=== PATIENT | female | born 1970 | race African-American/Black ===

== ENCOUNTER 2018-11-13 02:36 | Emergency (ER) | payer MEDICAID ==
[~2018-11-13] VITALS: Ht 165.1 cm; Wt 190.5 kg
[~2018-11-13 02:36] MED LIST: METFSOL2; VER40T
[2018-11-13 03:56] LABS: Basophils # (auto) 0 uL; Basophils % (auto) 0.7 % (0.0-2.0); Eosinophils # (auto) 0.1 uL; Eosinophils % (auto) 1.3 % (0.0-7.0); Hematocrit 34.9 % (36.0-46.0); Hemoglobin 11.1 g/dL (12.2-16.2); Lymphocytes # (auto) 2.5 uL; Lymphocytes % (auto) 40.8 % (10.0-50.0); Mean Corpuscular Hemoglobin 25.9 pg (28.0-32.0); Mean Corpuscular Hgb Conc. 31.7 g/dL (32.0-36.0); Mean Corpuscular Volume 81.8 fL (80.0-100.0); Monocytes # (auto) 0.5 uL; Monocytes % (auto) 8.7 % (0.0-12.0); Neutrophils % (auto) 48.5 % (37.0-80.0); Nucleated Red Blood Cells % 0.1 %; Platelet Count (auto) 263 10^3/uL (140-450); Red Blood Cells 4.27 10^6/uL (4.0-5.20); Red Cell Distribution Width 16.9 % (11.8-14.3); White Blood Cell 6.1 10^3/uL (4.4-10.8)
[2018-11-13 04:03] VITALS: BP 158/74
[2018-11-13 04:11] LABS: Potassium 3.7 mmol/L (3.5-5.1)
[2018-11-13] MEDS ORDERED: KETOROLAC TROMETH 60MG/2ML VIAL IM ONE (04:15)
[2018-11-13 04:16] LABS: Albumin 3.3 g/dL (3.4-5.0); Calcium 9.4 mg/dL (8.5-10.1)
[2018-11-13 04:21] LABS: BUN/Creatinine Ratio 17.2; Bilirubin, Total 0.3 mg/dL (0.2-1.0)
== END 2018-11-13 04:39 | disposition home or self-care (01) ==
LOC: ER 02:40 → MERGE 02:40 → ER 04:39
DX: B36.9 Superficial mycosis, unspecified (principal); H62.41 Otitis externa in other diseases classified elsewhere, right ear
CPT/HCPCS: 36415; 80053; 85025; 96372; 99283; J1885

== ENCOUNTER → 2023-05-11 | Outpatient (CLI) | payer OTHER, MEDICAID ==
[~2023-05-11] MED LIST changes: +ALBUTEROL SULF 2.5 MG/0.5ML(0.5%) NEB SOLN ONE
== END | disposition home or self-care (01) ==
LOC: RT 08:55
PROVIDERS: ATTEND Internal Medicine Pulmonary Disease
DX: Z01.818 Encounter for other preprocedural examination (principal); R06.09 Other forms of dyspnea
CPT/HCPCS: 94060; 94727; 94729

== ENCOUNTER → 2024-02-15 | Outpatient (CLI) | payer OTHER ==
[~2024-02-15] MED LIST changes: -ALBUTEROL SULF 2.5 MG/0.5ML(0.5%) NEB SOLN ONE
== END | disposition home or self-care (01) ==
LOC: Rad HDHVI 09:13
PROVIDERS: ATTEND Internal Medicine Cardiovascular Disease
DX: Z01.818 Encounter for other preprocedural examination (principal); I10 Essential (primary) hypertension
CPT/HCPCS: 93880

== ENCOUNTER 2024-07-03 07:24 | Inpatient (IN) | payer OTHER, MEDICAID ==
[~2024-07-03] VITALS: Ht 167.6 cm; Wt 163.5 kg
--- NOTE | 2024-07-03 07:38 | ED.PDOC ---
History of Present Illness HPI Comments 54 Y F, with PMHX of anemia and HTN, presents to the ED with CC HTN. Patient states that she has been experiencing high blood pressure with associated symptoms of dizziness and lightheadedness. Patient states that she checked her BP at home and the reading was 190/104; patient's BP in triage read at 189/98. Patient is currently taking atenolol and enalapril for her HTN. Patient relays that she is also having left sided chest pain that she believes is related to her gastric sleeve surgery which she received on 06/27/24. Patient denies any tobacco, ETOH, or illicit drugs. Patient denies SOB, cough, fever, chills, headache, or nasal congestion. Time Seen by MD: 07:30 Primary Care Provider: CORBY Reviewed Notes: Nurses Notes, Medications, Allergies Allergies: Coded Allergies: NO KNOWN ALLERGIES (Unverified , 05/19/11) Home Meds Reported Medications Verapamil Hcl (Verapamil Hcl) 40 Mg Tab 05/19/11 Metformin Hcl (Riomet) Keila 05/19/11 Information Source: Patient Mode of Arrival: Ambulatory Severity: Moderate Timing: Hours Duration: Since onset Prehospital treatment: None Past Medical History PAST MEDICAL HISTORY: Anemia, DM, HTN Surgical History: Family History Family History: Unknown Social History Smoker: Non-Smoker Alcohol: Denies ETOH Use Drugs: Denies Drug Use Lives In: Home Constitutional: denies: chills, diaphoresis, fatigue, fever, malaise, sweats, weakness, others EENTM: denies: blurred vision, double vision, ear bleeding, ear discharge, ear drainage, ear pain, ear ringing, eye pain, eye redness, hearing loss, mouth pain, mouth swelling, nasal discharge, nose bleeding, nose congestion, nose pain, photophobia, tearing, throat pain, throat swelling, voice changes, others Respiratory: denies: cough, hemoptysis, orthopnea, SOB at rest, shortness of breath, SOB with excertion, stridor, wheezing, others Cardiovascular: reports: chest pain (LEFT SIDED); denies: dizzy spells, diaphoresis, Dyspnea on exertion, edema, irregular heart beat, left arm pain, lightheadedness, palpitations, PND, syncope, others Gastrointestinal: denies: abdomen distended, abdominal pain, blood streaked bowels, constipated, diarrhea, dysphagia, difficulty swallowing, hematemesis, melena, nausea, poor appetite, poor fluid intake, rectal bleeding, rectal pain, vomiting, others Genitourinary: denies: abnormal vagina bleeding, burning, dyspareunia, dysuria, flank pain, frequency, hematuria, incontinence, pain, , vagina discharge, urgency, others Neurological: reports: dizziness, others (LIGHTHEADED); denies: fainting, headache, left sided numbness, left sided weakness, numbness, paresthesia, pre- existing deficit, right sided numbness, right sided weakness, seizure, speech problems, tingling, tremors, weakness Musculoskeletal: denies: back pain, gout, joint pain, joint swelling, muscle pain, muscle stiffness, neck pain, others Integumetry: denies: bruises, change in color, change in hair/nails, dryness, laceration, lesions, lumps, rash, wounds, others Allergic/Immunocompromised: denies: Difficulty Healing, Frequent Infections, Hives, Itching, others Hematologic/Lymphatic: denies: anemia, blood clots, easy bleeding, easy bruising, swollen glands, others Endocrine: denies: excessive hunger, excessive sweating, excessive thirst, excessive urination, flushing, intolerance to cold, intolerance to heat, unexplained weight gain, unexplained weight loss, others Psychiatric: denies: anxiety, bipolar disorder, depression, hopeless, panic disorder, schizophrenia, sleepless, suicidal, others All Other Systems: Reviewed and Negative Physical Exam General Appearance: Moderate Distress, Obese HEENT: Normal ENT Inspection, Pharynx Normal, TMs Normal Neck: Full Range of Motion, Non-Tender, Normal, Normal Inspection Respiratory: Chest Non-Tender, Lungs Clear, No Accessory Muscle Use, No Respiratory Distress, Normal Breath Sounds Cardiovascular: No Edema, No JVD, No Murmur, No Gallop, Normal Peripheral Pulses, Regular Rate/Rhythm Breast Exam: Deferred Gastrointestinal: No Organomegaly, Non Tender, No Pulsatile Mass, Normal Bowel Sounds, Soft Genitalia: Deferred Pelvic: Deferred Rectal: Deferred Extremities: No calf tenderness, Normal capillary refill, Normal inspection, N ormal range of motion, Non-tender, No pedal edema Musculoskeletal : Apperance: Normal Neurologic: Alert, operating systems programmer II-XII nml as Tested, No Motor Deficits, Normal Affect, Normal Mood, No Sensory Deficits Cerebellar Function: Normal Reflexes: Normal Skin: Dry, Normal Color, Warm Peripheral Pulses: 3+ Radial (R), 3+ Radial (L) Lymphatic: No Adenopathy Was a procedure done? Was a procedure done?: No Differential Dx Considerations may include: Stress, HTN CRISIS, X-Ray, Labs, Meds, VS Vital Signs Date Time Temp Pulse Resp B/P (MAP) Pulse Ox O2 Delivery O2 Flow Rate FiO2 07/03/24 07:42 189/98 07/03/24 07:40 98.4 89 18 189/98 (128) 97 07/03/24 07:40 83 Lab Test 07/03/24 08:34 07/03/24 07:46 Range/Units Urine Color Light-yellow Yellow Urine Clarity Clear Clear Urine pH 6.5 5.0-9.0 Urine Specific [place] 1.015 1.001-1.035 Urine Protein Negative Negative Urine Ketones 3+ H Negative Urine Blood 2+ H Negative /uL Urine Nitrite Negative Negative Urine Bilirubin Negative Negative Urine Urobilinogen Normal Negative mg/dL Urine Leukocyte Esterase Negative Negative /uL Urine RBC 37 0 - 4 /hpf Urine WBC <1 0 - 5 /hpf Urine Squamous Epithelial Cells Few <5 /hpf Urine Bacteria None seen None Seen /hpf Urine Mucus Few None Seen Urine Glucose Normal Normal mg/dL White Blood Count 5.5 4.4-10.8 10^3/uL Red Blood Count 5.04 4.0-5.20 10^6/uL Hemoglobin 13.1 12.2-16.2 g/dL Hematocrit 41.3 36.0-46.0 % Mean Corpuscular Volume 82.1 80.0-100.0 fL Mean Corpuscular Hemoglobin 26.1 L 28.0-32.0 pg Mean Corpuscular Hemoglobin Concent 31.8 L 32.0-36.0 g/dL Red Cell Distribution Width 21.3 H 11.8-14.3 % Platelet Count 207 140-450 10^3/uL Mean Platelet Volume 9.7 6.9-10.8 fL Neutrophils (%) (Auto) 68.5 37.0-80.0 % Lymphocytes (%) (Auto) 22.2 10.0-50.0 % Monocytes (%) (Auto) 7.5 0.0-12.0 % Eosinophils (%) (Auto) 0.9 0.0-7.0 % Basophils (%) (Auto) 0.9 0.0-2.0 % Neutrophils # (Auto) 3.7 1.6-8.6 10 ^3/uL Lymphocytes # (Auto) 1.2 0.4-5.4 10 ^3/uL Monocytes # (Auto) 0.4 0-1.3 10 ^3/uL Eosinophils # (Auto) 0.1 0-0.8 10 ^3/uL Basophils # (Auto) 0 0-0.2 10 ^3/uL Nucleated Red Blood Cells 0.0 % Sodium Level 137 136-145 mmol/L Potassium Level 3.9 3.5-5.1 mmol/L Chloride Level 102 98-107 mmol/L Carbon Dioxide Level 27 20-31 mmol/L Anion Gap 8 5-15 Blood Urea Nitrogen 10 9-23 mg/dL Creatinine 0.79 0.550-1.02 mg/dL Glomerular Filtration Rate Calc 88 >90 mL/min BUN/Creatinine Ratio 12.7 10.0-20.0 Serum Glucose 73 L 74-106 mg/dL Calcium Level 11.6 H 8.7-10.4 mg/dL Troponin I High Sensitivity 3 L </=34 ng/L Current Medications Medications (Trade) Dose Ordered Sig/Loree Route Start Time Stop Time Status Last Admin Clonidine HCl (Catapres Tablet) 0.2 mg ONCE ONCE PO 07/03/24 07:45 07/03/24 07:46 DC 07/03/24 07:42 Patient alert. Complaining of having high blood pressure. Chest discomfort. Blood pressure elevated. Was given clonidine. Was given aspirin. WBC within normal limits. EKG reviewed does not show any acute changes. Cardiac marker within normal limits. Reviewed her history. Explained to the patient. Continue cardiac monitoring. Time of 1ST Reevaluation: 08:00 Reevaluation 1ST: Unchanged Patient Education/Counseling: Diagnosis, Treatment Family Education/Counseling: No Family Present Departure 1 Departure Time of Disposition: :27 Impression: Primary Impression: Chest pain of unknown etiology Additional Impression: Hypertensive emergency Disposition: ADMITTED INPATIENT Admit to: Med Surg Condition: Guarded Critical Care Note Critical Care Time?: Yes (45 min-critical care time only) Stability Stability form required: No Heart Score Heart Score: Heart Score Response (Comments) Value History Slightly Suspicious 0 EKG Normal 0 Age 45-64 1 Risk Factors 1 or 2 risk factors 1 Troponin Normal limit 0 Total 2 I personally scribed for JEAN PERKINS MD ([email or web address]) on 07/03/24 at 07:38. Electronically submitted by Chauncey Marley ([email or web address]). I personally scribed for JEAN PERKINS MD ([email or web address]) on 07/03/24 at 07:43. Electronically submitted by Chauncey Marley ([email or web address]). I personally scribed for JEAN PERKINS MD ([email or web address]) on 07/03/24 at 07:54. Electronically submitted by Chauncey Marley ([email or web address]). JEAN PERKINS MD Jul 03, 2024 07:38
[2024-07-03] MEDS: cloNIDine HCL 0.1 MG TAB PO ONE (07:42)
[2024-07-03 08:05] LABS: Basophils # (auto) 0 10 ^3/uL (0-0.2); Basophils % (auto) 0.9 % (0.0-2.0); Eosinophils # (auto) 0.1 10 ^3/uL (0-0.8); Eosinophils % (auto) 0.9 % (0.0-7.0); Hematocrit 41.3 % (36.0-46.0); Hemoglobin 13.1 g/dL (12.2-16.2); Lymphocytes # (auto) 1.2 10 ^3/uL (0.4-5.4); Lymphocytes % (auto) 22.2 % (10.0-50.0); Mean Corpuscular Hemoglobin 26.1 pg (28.0-32.0); Mean Corpuscular Hgb Conc. 31.8 g/dL (32.0-36.0); Mean Corpuscular Volume 82.1 fL (80.0-100.0); Monocytes # (auto) 0.4 10 ^3/uL (0-1.3); Monocytes % (auto) 7.5 % (0.0-12.0); Neutrophils # (auto) 3.7 10 ^3/uL (1.6-8.6); Neutrophils % (auto) 68.5 % (37.0-80.0); Platelet Count (auto) 207 10^3/uL (140-450); Red Blood Cells 5.04 10^6/uL (4.0-5.20); Red Cell Distribution Width 21.3 % (11.8-14.3); White Blood Cell 5.5 10^3/uL (4.4-10.8)
[2024-07-03 08:08] LABS: Chloride 102 mmol/L (98-107); Potassium 3.9 mmol/L (3.5-5.1); Sodium 137 mmol/L (136-145)
[2024-07-03 08:09] LABS: Anion Gap 8 (5-15); Carbon Dioxide 27 mmol/L (20-31)
[2024-07-03 08:14] LABS: BUN/Creatinine Ratio 12.7 (10.0-20.0); Blood Urea Nitrogen 10 mg/dL (9-23)
[2024-07-03 08:24] LABS: Calcium 11.6 mg/dL (8.7-10.4); Glucose 73 mg/dL (74-106)
[2024-07-03 09:02] LABS: Urine Bacteria None Seen /hpf (None Seen)
[2024-07-03 09:14] LABS: Urine Blood 2+ /uL (Negative); Urine Clarity Clear (Clear); Urine Color Light-Yellow (Yellow); Urine Mucus FEW (None Seen); Urine Protein, UAD Negative (Negative); Urine Specific Gravity 1.015 (1.001-1.035); Urine Urobilinogen Normal (Negative); Urine WBC <1 /hpf (0 - 5); Urine pH 6.5 (5.0-9.0)
[2024-07-03 09:50] VITALS: PULSE 72; RESP 17; O2SAT 95
[2024-07-03] MEDS ORDERED: DOCUSATE SOD 100 MG CAP PO PRN (12:00)
[2024-07-03] MEDS: SODIUM CHLORIDE 0.9% 1,000 ML IV SCH (12:00)
[2024-07-03] MEDS ORDERED: hydrALAZINE HCL 20 MG/ML VL IV PRN (12:00)
[2024-07-03] MEDS ORDERED: MORPHINE SULFATE INJ 2 MG/ml SYRG IV PRN (12:00)
[2024-07-03] MEDS ORDERED: ONDANSETRON HCL 4 MG/2 ML VIAL IV PRN (12:00)
[2024-07-03] MEDS ORDERED: NITROGLYCERIN 0.4 MG SL TAB SL PRN (12:00)
--- NOTE | 2024-07-03 12:04 | DVHHP2 ---
History of Present Illness Reason for Visit: High blood pressure dizziness took meds as scheduled History of Present Illness 54-year-old female past medical history anemia hypertension diabetes recent gastric sleeve August 28, 2023 chief complaint patient comes in stating that she blood pressure was high she developed some dizziness and lightheadedness with a blood pressure she checked her pressure was 194/104 she took her atenolol as scheduled despite this her blood pressure was continued to high she also complain of headache. No thunderclap headache was like a pressure pain patient also complain of left chest wall pain she states it feels like a burning pain she thinks it might be GERD type symptoms she recently got a gastric sleeve placed. Patient denies any calf pain or leg swelling she does complain of midepigastric abdominal pain no vomiting no diarrhea she states she was only able to take liquids since her procedure when evaluating patient's labs and imaging looks like clonidine was given CBC was unremarkable glucose was 73 calcium was 11.6 troponin was negative urine was ketones and little bit of blood. Patient had CT scan of the abdomen pelvis shows ventral hernia without strangulation fibroids. Chest x-ray showed atelectasis. With these findings we will admit patient for IV hydration and workup for chest pain and headache Past Medical History Anemia hypertension diabetes Past Surgical History recent, recent gastric sleeve surgery June 27, 2024 Family History Reviewed, non-contributory to the management of this case. Past Social History The patient lives at home, denies smoking, alcohol or illicit drugs abuse. Review of Systems Constitutional: No: Fever, Chills, Sweats, Weakness, Malaise, Other Eyes: No: Pain, Vision change, Conjunctivae inflammation, Eyelid inflammation, Other, Redness ENT: No: Ear pain, Ear discharge, Nose pain, Nose discharge, Nose congestion, Mouth pain, Mouth swelling, Throat pain, Throat swelling, Other Respiratory: No: Cough, Dry, Shortness of breath, SOB with excertion, Wheezing, Hemoptysis, Pleuritic Pain, Sputum, Wheezing, Other Cardiovascular: No: Chest Pain, Palpitations, Orthopnea, Paroxysmal Noc. Dyspnea, Edema, Lt Headedness, Other Gastrointestinal: No: Nausea, Vomiting, Abdominal Pain, Diarrhea, Constipation, Melena, Hematochezia, Other Genitourinary: No Dysuria, No Frequency, No Incontinence, No Hematuria, No Retention, No Other Musculoskeletal: No: other, neck pain, shoulder pain, arm pain, back pain, hand pain, leg pain, foot pain Skin: No: Rash, Lesions, Jaundice, Bruising, Other Neurological: Weakness; No: Numbness, Incoordination, Change in speech, Conf usion, Seizures, Other Allergies: Coded Allergies: NO KNOWN ALLERGIES (Unverified , 05/19/11) Medications Current Medications Medications Dose Ordered Sig/Loree Route Start Time Stop Time Status Last Admin Dose Admin Verapamil HCl 40 mg DAILY PO 07/04/24 10:00 UNV Hydralazine HCl 10 mg Q6HP PRN IV 07/03/24 12:00 UNV Sodium Chloride 1,000 ml @ 120 mls/hr Q8H20M IV 07/03/24 12:00 UNV Ondansetron HCl 4 mg Q4HP PRN IV 07/03/24 12:00 UNV Docusate Sodium 100 mg BIDPRN PRN PO 07/03/24 12:00 UNV Morphine Sulfate 2 mg Q4HPRN PRN IV 07/03/24 12:00 UNV Nitroglycerin 0.4 mg Q5MINP PRN SL 07/03/24 12:00 UNV Exam Vital Signs Vital Signs Date Time Temp Pulse Resp B/P (MAP) Pulse Ox O2 Delivery O2 Flow Rate FiO2 07/03/24 09:50 98.2 72 18 160/97 (118) 95 98.2 07/03/24 09:50 Room Air* 0 21 General Appearance: Alert, Oriented X3, Cooperative, No acute distress HEENT: Atraumatic, PERRLA, EOMI, Mucous membr. moist/pink Respiratory: Clear to auscultation, Normal air movement Cardiovascular: Regular rate, Normal S1, Normal S2, No murmurs Abdominal: Normal bowel sounds, Soft, No tenderness, No hepatospenomegaly, No masses, Other (Three lap sites seen him to the abdomen healing glued together no drainage no necrosis no heat) Extremities: No clubbing, No cyanosis, No edema, Normal pulses, No tenderness/swelling Skin: No rashes, No breakdown, No significant lesion Neuro: Normal gait, Normal speech, Strength at 5/5 X4 ext, Normal tone, Sensation intact, Cranial nerves 3-12 NL Psych/Mental Status: Mental status NL, Mood NL Labs/Xrays I reviewed labs, imaging CT scan abdomen pelvis, EKG and all diagnostic studies on this patient from ED records and the medical chart Labs Test 07/03/24 08:34 07/03/24 07:46 Range/Units Urine Color Light-yellow Yellow Urine Clarity Clear Clear Urine pH 6.5 5.0-9.0 Urine Specific [place] 1.015 1.001-1.035 Urine Protein Negative Negative Urine Ketones 3+ H Negative Urine Blood 2+ H Negative /uL Urine Nitrite Negative Negative Urine Bilirubin Negative Negative Urine Urobilinogen Normal Negative mg/dL Urine Leukocyte Esterase Negative Negative /uL Urine RBC 37 0 - 4 /hpf Urine WBC <1 0 - 5 /hpf Urine Squamous Epithelial Cells Few <5 /hpf Urine Bacteria None seen None Seen /hpf Urine Mucus Few None Seen Urine Glucose Normal Normal mg/dL White Blood Count 5.5 4.4-10.8 10^3/uL Red Blood Count 5.04 4.0-5.20 10^6/uL Hemoglobin 13.1 12.2-16.2 g/dL Hematocrit 41.3 36.0-46.0 % Mean Corpuscular Volume 82.1 80.0-100.0 fL Mean Corpuscular Hemoglobin 26.1 L 28.0-32.0 pg Mean Corpuscular Hemoglobin Concent 31.8 L 32.0-36.0 g/dL Red Cell Distribution Width 21.3 H 11.8-14.3 % Platelet Count 207 140-450 10^3/uL Mean Platelet Volume 9.7 6.9-10.8 fL Neutrophils (%) (Auto) 68.5 37.0-80.0 % Lymphocytes (%) (Auto) 22.2 10.0-50.0 % Monocytes (%) (Auto) 7.5 0.0-12.0 % Eosinophils (%) (Auto) 0.9 0.0-7.0 % Basophils (%) (Auto) 0.9 0.0-2.0 % Neutrophils # (Auto) 3.7 1.6-8.6 10 ^3/uL Lymphocytes # (Auto) 1.2 0.4-5.4 10 ^3/uL Monocytes # (Auto) 0.4 0-1.3 10 ^3/uL Eosinophils # (Auto) 0.1 0-0.8 10 ^3/uL Basophils # (Auto) 0 0-0.2 10 ^3/uL Nucleated Red Blood Cells 0.0 % Sodium Level 137 136-145 mmol/L Potassium Level 3.9 3.5-5.1 mmol/L Chloride Level 102 98-107 mmol/L Carbon Dioxide Level 27 20-31 mmol/L Anion Gap 8 5-15 Blood Urea Nitrogen 10 9-23 mg/dL Creatinine 0.79 0.550-1.02 mg/dL Glomerular Filtration Rate Calc 88 >90 mL/min BUN/Creatinine Ratio 12.7 10.0-20.0 Serum Glucose 73 L 74-106 mg/dL Calcium Level 11.6 H 8.7-10.4 mg/dL Troponin I High Sensitivity 3 L </=34 ng/L Assessment/Plan Assessment/Plan acute chest pain r/o nstemi ekg no stemi trop negative ordered Cards consult pending eval and recs ordered asa atorvastin for now Echocardiogram as completed in 09/2023 ef 55% ordered protonix ordered morphine as needed for pain, ordered nitro prn acute hypertension emergency ordered hydralazine prn elevated bp ordered verapamil Acute dizziness likely related to elevated blood pressure versus dehydration Order CT scan of the brain follow up results Blood pressure management Fall precautions acute hypercalcemia likely from recent bypass surgery ordered ivf for now acute dehydration ua with ketones ordered ivf for now acute ventral hernia outpt fu with general surgery acute fibroid outpt follow up with premix concrete batcher acute gastric sleeve 06/27/24 with lap sites to abd healing ct scan no acute surgical findings ordered clr liquid for now acute atelectasis ordered incentive spirometer fen/ppx clr liquid ivf Protonix scd no dvt ppx since pt is ambulatory plan admit to tele cards consult Plan discussed with: Patient My Orders Orders - RADHA CORREA DNP Procedure Category Date Status Time Verapamil Hcl (Calan) PHA 07/04/24 Logged 10:00 Hydralazine Injection PHA 07/03/24 Logged (Apresoline Inject 12:00 Admit ADMIT 07/03/24 Transmitted 11:48 Allergies RAFAEL 07/03/24 In Process 11:48 Code Status CODE 07/03/24 Transmitted 11:48 Sodium Chloride 0.9% PHA 07/03/24 Logged 12:00 Ondansetron Hcl PHA 07/03/24 Logged (Zofran) 12:00 Docusate Sodium PHA 07/03/24 Logged Capsule (Colace 12:00 Complete Blood Count LAB 07/04/24 Verified 04:00 Comprehensive LAB 07/04/24 Verified Metabolic Panel 04:00 Condition: Stable RAFAEL 07/03/24 In Process 11:48 Clear Liq Diet DIET 07/03/24 Transmitted Lunch BRP RAFAEL 07/03/24 In Process 11:48 Morphine Sulfate PHA 07/03/24 Logged Injection 12:00 Sequential RAFAEL 07/03/24 In Process Compression Device Nitroglycerin [facility] 07/03/24 Logged Sublingual (Ntrostat 12:00 Stat Ekg For Chest [facility] 07/03/24 In Process Pain 11:48 Notify Of Changes [facility] 07/03/24 In Process From Base 11:48 [employer] For [facility] 07/03/24 In Process 24 Hours 11:48 Emergency Dysrhythmia [facility] 07/03/24 In Process Protocol 11:48 Rhythm Strips Once [facility] 07/03/24 In Process Every Shift 11:48 Oxygen By Nasal RT 07/03/24 Transmitted Cannula 11:48 Ct Ab Pel Wo Con-No CT 07/03/24 Logged Oral Or Iv 11:56 Chest Xray 1 View XY 07/03/24 Logged 11:56 Troponin-I Hs LAB 07/03/24 Logged 11:56 Troponin-I Hs LAB 07/03/24 Logged 12:56 Electrocardigram EKG 07/03/24 Logged 11:56 Date of Service: Jul 03, 2024 Billing Provider: RADHA CORREA DNP Common Visit Codes: [id number] INP/OBS CARE (HIGH) RADHA CORREA DNP Jul 03, 2024 12:04
--- NOTE | 2024-07-03 13:21 | DVH ---
Exam: CT CT AB PEL WO CON-NO ORAL OR IV History: acute abd pain Comparison Study: None Technique: Multidetector spiral CT of the abdomen and pelvis was performed from lung bases to pubic symphysis. Imaging was performed without IV contrast. Axial, coronal and sagittal multiplanar reform ats were obtained from the axial data set by the technologist. Radiation dose : Abdomen/Pelvis: CTDIvol 27 mGy, DLP 1526.19 mGy*cm. Findings: Evaluation of solid organs is limited due to lack of intravenous contrast use. Lung Bases: No acute or significant lung base finding. Normal heart size. No pleural or pericardial effusion. Liver: The liver is normal in size. No focal lesions. Gallbladder and biliary Tree: Unremarkable Spleen: Unremarkable Pancreas: The pancreas is grossly normal in appearance. Adrenal Glands: Unremarkable Kidneys: Kidneys are grossly normal without calculi or hydronephrosis. Bladder: Grossly unremarkable for degree of distention. Bowel: Postsurgical changes in the stomach. Small bowel and colon are normal in caliber and distribut ion. Normal appendix is visualized in the right lower quadrant without findings of appendicitis. Ascites: Absent Lymphadenopathy: No mesenteric, retroperitoneal or periportal lymphadenopathy. Abdominal wall and Mesentery: Ventral hernia containing fat and bowel. Vasculature: The visualized abdominal aorta is normal in size and caliber. Evaluation of abdominal a nd pelvic vessels is limited due to lack of intravenous contrast. Pelvic Organs: The uterus is enlarged. Prominence of the right adnexa measuring up to 72 mm. Musculoskeletal: No aggressive focal bony lesions, acute fractures or dislocation. IMPRESSION: 1. No acute abdominal or pelvic findings. Ventral hernia containing fat and bowel. Enlarged uterus an d prominent right adnexa. Right adnexal lesion could represent an exophytic fibroid. An ovarian lesi on is not excluded. Recommend further evaluation with pelvic ultrasound and/ or MRI of the pelvis wi th contrast. Radiation optimization: All CT scans at this facility use at least one of these dose optimization sonu hniques: Automated exposure control mA and/or kV adjustment per patient size (includes targeted exams where dose is matched to clinical indication) or iterative reconstruction. HS:Y
--- NOTE | 2024-07-03 13:24 | DVH ---
CHEST RADIOGRAPH Indication: acute chest pain Technique: Single frontal view of the chest was obtained Comparison: None FINDINGS: Lines and Tubes: None Lungs: No focal consolidation. Lower lung zone linear density. Pleura: No effusion. No pneumothorax. Cardiomediastinal contours: Mild cardiomegaly Bones: No acute osseous abnormality. IMPRESSION: Mild cardiomegaly with left lower lung zone linear atelectasis. Otherwise, no evidence for acute card iopulmonary disease.
[2024-07-03 14:00] VITALS: BP 146/97; PULSE 75; RESP 16; TEMP 97.5; O2SAT 97
--- NOTE | 2024-07-03 18:46 | DVH ---
EXAM: CT HEAD WITHOUT CONTRAST INDICATION: headache abd dizziness TECHNIQUE: CT of the head without intravenous contrast. Radiation Dose Information: CT Dose: CTDI volume is 53.86 mGy. Dose-length product is 972.9 mGy*cm The dose indicators for CT are the volume Computed Tomography (CT) Dose Index (CTDIvol) and the Dose Length Product (DLP), and are measured in units of mGy and mGy-cm, respectively. These indicators are not patient dose, but values generated from the CT scanner acquisition factors. The report includes radiation exposure data for exposures received during this examination. COMPARISON: None FINDINGS: There is no evidence of acute intracranial hemorrhage, extra-axial collection, mass effect, midline s hift, herniation or hydrocephalus. The ventricles, sulci and cisterns are age appropriate. Bilateral basal ganglia calcifications. The prabhakar-white differentiation is intact. Patchy periventricular and subcortical white matter hypoattenuation is nonspecific but may be related to small vessel ischemic disease. The visualized paranasal sinuses and mastoid air cells are clear. The surrounding soft tissues and osseous structures are unremarkable. Hyperostosis frontalis interna. IMPRESSION: 1. No CT evidence of acute intracranial abnormality. HS:Y
[2024-07-03] MEDS ORDERED: ENOXAPARIN SOD 150 MG/1 ML SYRINGE SC SCH (22:00)
[2024-07-04] MEDS ORDERED: VERAPAMIL HCL 40 MG TAB PO SCH (10:00)
--- NOTE | 2024-07-06 09:11 | ECG ---
[facility] Test Date: 2024-07-03 Test Time: 07:40:16 Pat Name: MILEY KENDRICK Department: er Room: [address] [place] [address] A Gender: F [employer] Supervisor: leslye : 1970 Requested By: JEAN PERKINS Order Number: [id number] Reading MD: Mendel Arboleda Measurements Intervals [place] Rate: 83 P: 48 VA: 249 QRS: 3 QRSD: 104 T: 9 QT: 412 QTc: 485 Interpretive Statements Sinus rhythm Prolonged VA interval Electronically Signed On 07-06-2024 12:37:57 PST by Mendel Arboleda Please click the below link to view image of tracing.
== END 2024-07-03 19:51 | disposition left against medical advice (07) | DRG 394 ==
LOC: ER 07:24 → TELE 11:48
PROVIDERS: ADMIT Nurse Practitioner Family; ATTEND Nurse Practitioner Family
DX: K43.9 Ventral hernia without obstruction or gangrene (principal); I16.1 Hypertensive emergency; J98.11 Atelectasis; E86.0 Dehydration; E83.52 Hypercalcemia; R07.9 Chest pain, unspecified; E11.9 Type 2 diabetes mellitus without complications; Z53.29 Procedure and treatment not carried out because of patient's decision for other reasons; Z98.84 Bariatric surgery status
CPT/HCPCS: 36415; 70450; 71045; 74176; 80048; 81001; 84484; 85025; 93005; 99291; G0378